=== PATIENT | male | born 1995 | race Caucasian/White ===

== ENCOUNTER 2024-02-23 21:47 | Emergency (ER) | payer OTHER ==
[2024-02-23] MEDS: Diphtheria,Pertussis(Acell),Tetanus Vaccine 0.5 ML Syringe IM ONE (23:35)
[2024-02-24] MEDS: Lidocaine 1% 10 ML MDV INJECT ONE (00:40)
[2024-02-24] MEDS: Levofloxacin 250 MG Tab PO ONE (00:53)
== END 2024-02-24 00:58 | disposition home or self-care (01) ==
LOC: JD.ED 21:47
DX: S01.351A Open bite of right ear, initial encounter (principal); F17.210 Nicotine dependence, cigarettes, uncomplicated; Z23 Encounter for immunization; Z86.16 Personal history of COVID-19; Z79.899 Other long term (current) drug therapy; W54.0XXA Bitten by dog, initial encounter
CPT/HCPCS: 12014; 90471; 90715; 99283; A9270; J3490